=== PATIENT | female | born 1960 | race Caucasian/White ===

== ENCOUNTER 2018-03-11 15:33 | Emergency (ER) | payer MEDICARE, MEDICAID | END 2018-03-11 17:42 | disposition home or self-care (01) | LOC: M ED 15:33 | DX: F32.9 Major depressive disorder, single episode, unspecified (principal); I10 Essential (primary) hypertension; E11.9 Type 2 diabetes mellitus without complications; Z88.0 Allergy status to penicillin; Z88.1 Allergy status to other antibiotic agents; Z88.5 Allergy status to narcotic agent; Z91.018 Allergy to other foods; Z79.899 Other long term (current) drug therapy | CPT/HCPCS: 93005 ==

== ENCOUNTER 2018-03-12 15:37 | Emergency (ER) | payer MEDICARE, MEDICAID | END 2018-03-12 17:10 | disposition home or self-care (01) | LOC: M ED 15:37 | DX: F32.9 Major depressive disorder, single episode, unspecified (principal); E11.9 Type 2 diabetes mellitus without complications; I10 Essential (primary) hypertension; Z91.018 Allergy to other foods; Z88.5 Allergy status to narcotic agent; Z88.0 Allergy status to penicillin; Z88.1 Allergy status to other antibiotic agents; Z79.899 Other long term (current) drug therapy | CPT/HCPCS: 99284 ==

== ENCOUNTER → 2018-10-16 | Outpatient (CLI) | payer MEDICARE, MEDICAID ==
[~2018-10-16] MED LIST: CLON-412; DIAZ5TAB; GABA600T4; IRBE300T10; LAMO100T; LATU80TA; SERT-138; TRAZ1TAB14
--- NOTE | 2018-10-17 10:33 | REP ---
MRI LUMBAR SPINE WITHOUT CONTRAST: TECHNIQUE: Multiple sequences obtained in the sagittal and axial planes. There is no compression fracture. There is 2 mm of retrolisthesis of L5 on S1. There is diffuse loss of water signal and disc degeneration with slight disc space narrowing at L4-5 and L5-S1. Conus is unremarkable. At the L1-2 level there is minimal diffuse disc bulging. There is no spinal stenosis. There are hypertrophic change of the ligamentum flavum and posterior facet joints. There appears to be mild to moderate left sided foraminal narrowing at this level. At L2-3 there is not significant disc bulging or herniation. There is mild hypertrophic change of the posterior facets and ligamentum flavum. There is no spinal stenosis or foraminal narrowing. At L3-4 there is mild diffuse disc bulging. There is mild hypertrophic change at the posterior facets and ligamentum flavum. There is no spinal stenosis. There is no neural foraminal narrowing. At L4-5 there is mild diffuse disc bulging. There is moderate hypertrophic change at the posterior facets and ligamentum flavum. There is very minimal spinal stenosis. There is no neural foraminal narrowing. At L5-S1 there is mild diffuse disc bulging. There is moderate hypertrophic change of the ligamentum flavum and posterior facets. There does not appear to be significant spinal stenosis. There is mild to moderate right sided foraminal narrowing. There is degenerative signal along the endplates of L4 inferiorly, L5 superior and inferiorly and S1 superiorly. IMPRESSION: Diffuse degenerative disc changes. Multilevel disc bulging and hypertrophic change of the posterior facets and ligamentum flavum. There is mild to moderate foraminal narrowing at L1-2 on the left. There is minor spinal stenosis at L4-5. There is mild to moderate foraminal narrowing on the right at L5-S1. Electronically Signed by Avinash Cooper MD 10/17/2018 04:27 P
== END ==
LOC: M RAD 12:27
PROVIDERS: ATTEND Physician Assistant
DX: M51.36 Other intervertebral disc degeneration, lumbar region (principal); M51.26 Other intervertebral disc displacement, lumbar region

== ENCOUNTER → 2019-02-18 | Outpatient (CLI) | payer MEDICARE, MEDICAID ==
--- NOTE | 2019-02-18 17:06 | REP ---
MRI cervical spine: 1918. Indication: Cervical radiculopathy. Comparison: None. Technique: Multiplanar short and long TR sequences of the cervical spine were obtained without IV Gadolinium. Findings: There is straightening of the cervical lordosis. No worrisome marrow signal is present. The visualized cord is normal. The vertebral flow voids appear codominant and unremarkable. CT/C3: Unremarkable. C3/C4: Unremarkable. C4/C5: Disc osteophyte complex is present most pronounced anteriorly without significant spinal canal or neural foraminal narrowing. C5/C6: Unremarkable. C6/C7: Disc osteophyte complex is present most pronounced anteriorly without significant spinal canal or neural foraminal narrowing. C7/T1: Unremarkable. Impression: Relatively mild degenerative sequelae of the cervical spine without significant spinal canal or neural foraminal narrowing. Electronically Signed by Mark Schulz DO 02/18/2019 04:57 P
--- NOTE | 2019-02-18 18:54 | REP ---
MRI right shoulder without contrast: History: Rule out rotator cuff tear. Nondisplaced fracture of the greater tuberosity of the right humerus. Right shoulder pain. No comparison radiographs are available. Technique: Axial, oblique coronal, and oblique sagittal imaging planes utilized. T1 and T2-weighted scans were included with and without fat saturation. MRI findings: There is some residual marrow edema at a healed greater tuberosity fracture of the proximal humerus. Cortical and medullary bone signal intensity are otherwise normal in the proximal humerus. There is a small glenohumeral joint effusion. The acromioclavicular joint is normally aligned. There is mild osteoarthritic hypertrophy at the AC joint with inferior and superior spurring. There is inferolateral spurring of the acromion process. There is a subacromial subdeltoid bursal effusion. There is advanced tendinosis with swelling and increased signal intensity in the supraspinatus tendon diffusely. There is tendinosis in the subscapularis tendon as well. Infraspinatus and biceps tendons appear intact. No anterior or posterior labral tear is appreciated. No full-thickness or retracted cuff tear is seen. Impression: Largely healed greater tuberosity fracture proximal humerus with minimal residual marrow edema. Advanced tendinosis in the supraspinatus tendon. 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 Subacromial subdeltoid bursal effusion and mild glenohumeral joint effusion. Tendinosis change also noted in the subscapularis tendon. Electronically Signed by Winston Leo MD 02/18/2019 07:53 P
== END ==
LOC: M PLARAD 14:14
PROVIDERS: ATTEND Physician Assistant
DX: M50.30 Other cervical disc degeneration, unspecified cervical region (principal); S42.254D Nondisplaced fracture of greater tuberosity of right humerus, subsequent encounter for fracture with routine healing; M67.911 Unspecified disorder of synovium and tendon, right shoulder; M25.711 Osteophyte, right shoulder; M25.411 Effusion, right shoulder; M25.78 Osteophyte, vertebrae

== ENCOUNTER 2022-07-20 15:26 | Emergency (ER) | payer OTHER, MEDICARE, MEDICAID ==
[~2022-07-20] VITALS: Ht 162.6 cm; Wt 104.5 kg
[~2022-07-20 15:26] MED LIST changes: -IRBE300T10; +IRBE300T7; -LAMO100T; +LAMO100T3; -LATU80TA; +LATU80TA2
[2022-07-20] MEDS ORDERED: ISOVUE-370 76% 100ML VIAL As Ordered ONE (16:04)
[2022-07-20 16:14] LABS: BASO % 0.7 % (0.0-1.0); EOS # 0.1 10^3/uL (0.0-0.5); EOS % 2.6 % (0.0-3.0); HEMATOCRIT 45.3 % (36.0-47.0); HEMOGLOBIN 14.4 g/dl (12.0-15.5); LYMPH # 1.4 10^3/uL (1.5-5.0); MEAN CORPUSCULAR HEMOGLOBIN 27.7 pg (27.0-33.0); MEAN CORPUSCULAR HGB CONC 31.8 g/dl (32.0-36.5); MEAN CORPUSCULAR VOLUME 87.3 fl (80.0-96.0); MONO # 0.5 10^3/uL (0.0-0.8); MONO % 9.5 % (2.0-8.0); NEUTROPHILS # 3.3 10^3/uL (1.5-8.5); PLATELET COUNT, AUTOMATED 201 10^3/uL (150-450); RED BLOOD COUNT 5.19 10^6/uL (4.00-5.40); WHITE BLOOD COUNT 5.5 10^3/uL (4.0-10.0)
[2022-07-20 16:25] LABS: INR 0.96
[2022-07-20 16:26] LABS: PARTIAL THROMBOPLASTIN TIME 29.7 SECONDS (24.8-34.2)
[2022-07-20 16:40] LABS: LIPASE 27 U/L (12-53)
[2022-07-20 16:42] LABS: AMYLASE 24 U/L (30-118); CPK CREATINE PHOSPHOKINASE 45 U/L (34-145)
[2022-07-20 16:46] LABS: ALBUMIN 3.4 G/DL (3.2-5.2); ALKALINE PHOSPHATASE 112 U/L (46-116); ALT/SGPT 16 U/L (7.0-40); AST/SGOT 20 U/L (<34); BILIRUBIN,DIRECT 0.1 MG/DL (<0.4); BILIRUBIN,TOTAL 0.4 MG/DL (0.3-1.2); CK-MB VALUE MASS < 1.0 NG/ML (<3.6); MB/CK RELATIVE INDEX 2.22 (< OR =4); TOTAL PROTEIN 6.3 G/DL (5.7-8.2)
[2022-07-20 16:52] LABS: RSV AMPLIFICATION NEGATIVE (NEGATIVE)
[2022-07-20] MEDS: fentaNYL 100 MCG/2 ML INJECTION IV PRN ×2 (16:57→17:50)
[2022-07-20 17:46] LABS: APPEARANCE, URINE CLEAR (CLEAR); BACTERIA, URINE AUTO NEGATIVE (NEGATIVE); BILIRUBIN, URINE AUTO NEGATIVE (NEGATIVE); BLOOD, URINE BLOOD NEGATIVE (NEGATIVE); COLOR, URINE YELLOW (YELLOW); GLUCOSE, URINE (UA) AUTO NEGATIVE (NEGATIVE); KETONE, URINE AUTO NEGATIVE (NEGATIVE); LEUKOCYTE ESTERASE, URINE AUTO NEGATIVE (NEGATIVE); NITRITE, URINE AUTO NEGATIVE (NEGATIVE); PROTEIN, URINE AUTO NEGATIVE (NEGATIVE); RBC, URINE AUTO 0 /HPF (0-3); SPECIFIC GRAVITY URINE AUTO 1.029 (1.002-1.035); SQUAMOUS EPITHELIAL CELL UR AU 0 /HPF (0-6); UROBILINOGEN, URINE AUTO 0.2 mg/dL (0.0-2.0); WBC, URINE AUTO 0 /HPF (0-3)
[2022-07-20] MEDS ORDERED: KETOROLAC 30 MG/ML 1ML VIAL IV ONE (18:35)
[2022-07-20] MEDS ORDERED: DIAZ2TAB (18:51)
[2022-07-20] MEDS ORDERED: PANT40TA29 (18:51)
[2022-07-20] MEDS ORDERED: METO50TA7 (18:51)
[2022-07-20] MEDS ORDERED: SUCR1TAB56 (18:51)
[2022-07-20] MEDS ORDERED: BACL5TAB2 (18:51)
[2022-07-20] MEDS ORDERED: KETO10TAB PO (19:04)
[2022-07-20 19:30] VITALS: BP 167/74
== END 2022-07-20 19:47 | disposition home or self-care (01) ==
LOC: M ED 15:26 → EDBD 15:26 → M ED 19:47
DX: Z04.1 Encounter for examination and observation following transport accident (principal); I10 Essential (primary) hypertension; E11.9 Type 2 diabetes mellitus without complications; Z88.0 Allergy status to penicillin; Z88.5 Allergy status to narcotic agent; Z88.8 Allergy status to other drugs, medicaments and biological substances; Z79.899 Other long term (current) drug therapy
CPT/HCPCS: 70450; 71260; 72125; 74177; 80047; 80076; 81001; 82150; 82550; 82553; 83605; 83690; 84484; 85025; 85610; 85730; 86850; 86900; 86901; 87631; 93041; 94760; 96365; 96366; 96375; 99285; J1885; J3010; Q9967

== ENCOUNTER → 2023-06-24 | Outpatient (REF) ==
[~2023-06-24] MED LIST changes: +BACL5TAB2; +DIAZ2TAB; +IRBE300T25; -IRBE300T7; +KETO10TAB PO; +METO50TA7; +PANT40TA29; +SUCR1TAB56
[2023-06-24 14:04] LABS: COLLAGEN EPINEPHRINE 185 SECONDS (74-162)
[2023-06-24 14:32] LABS: COLLAGEN ADP 152 SECONDS (56-103)
== END ==
LOC: M CAHLAB 13:22
PROVIDERS: ATTEND Physician Assistant
DX: Z00.00 Encounter for general adult medical examination without abnormal findings (principal)

== ENCOUNTER 2024-07-14 11:55 | Outpatient (CLI) | payer MEDICARE, MEDICAID ==
[~2024-07-14] VITALS: Ht 162.6 cm; Wt 87.2 kg
[~2024-07-14 11:55] MED LIST changes: +ACETAMINOPHEN 325 MG TAB PO PRN; +GABA-1490; -GABA600T4
[2024-07-14 12:00] VITALS: BP 138/62; O2SAT 100
[2024-07-14] MEDS: LR 1,000 ML IV SCH (12:05)
[2024-07-14] MEDS: FAMOTIDINE 20MG/2ML VIAL IV ONE (13:14)
[2024-07-14 14:00] VITALS: BP 136/66; O2SAT 100
[2024-07-14 15:00] VITALS: BP 138/72; O2SAT 100
[2024-07-14] MEDS: MULTIVITAMIN -ADULT INJECTION 10 ML, FOLIC ACID 1 MG, THIAMINE INJection 100 MG, MAGNES... IV ONE (15:22)
[2024-07-14] MEDS: ONDANSETRON 4MG 2ML VIAL IV PRN (16:40)
[2024-07-14 16:55] VITALS: BP 144/70; O2SAT 99
== END 2024-07-14 14:55 ==
LOC: M INFU 11:55
PROVIDERS: ATTEND Physician Assistant Surgical
DX: E86.0 Dehydration (principal); Z88.0 Allergy status to penicillin; Z88.5 Allergy status to narcotic agent; Z88.8 Allergy status to other drugs, medicaments and biological substances; Z91.018 Allergy to other foods
CPT/HCPCS: 96365; 96366; 96375; J2405; J3411; J3475